=== PATIENT | female | born 1995 | race Caucasian/White ===

== ENCOUNTER 2017-03-28 18:04 | Emergency (ER) | payer OTHER ==
[2017-03-28 18:14] VITALS: RESP 20; TEMP 98.1; O2SAT 99
--- NOTE | 2017-03-28 18:27 | EDPHY ---
H & P Stated Complaint: swallowed metal piece of retainer yesterday/abd pain today HPI/ROS: HPI CHIEF COMPLAINT: Swallowed a metal bar from an upper retainer. HISTORY OF PRESENT ILLNESS: This patient very pleasant 21-year-old female, she presents emergency room for upper abdominal pain intermittently rather severe after she swallowed a metal bar retainer. This was a metal bar that was glued to the upper teeth inside. She felt come off while eating cereal yesterday morning. She did swallowed she notified her parents and her nutrition manager. She now presents emergency room if she is having some intermittent rather severe sharp stabbing epigastric abdominal pain. Denies vomiting. Denies blood in her stool. Denies any significant medical history Past Medical History: Denies significant medical history Past Surgical History: Denies significant surgical history Social History: Denies daily use of drugs alcohol tobacco products Family History: Noncontributory ROS REVIEW OF SYSTEMS: A comprehensive 10 point review of systems is otherwise negative aside from elements mentioned in the history of present illness. Exam Constitutional appears well nontoxic, triage nursing summary reviewed, vital signs reviewed, awake/alert. Eyes normal conjunctivae and sclera, EOMI, PERRLA. HENT normal inspection, atraumatic, moist mucus membranes, no epistaxis, neck supple/ no meningismus, no raccoon eyes. Respiratory clear to auscultation bilaterally, normal breath sounds, no respiratory distress, no wheezing. Cardiovascular rate normal, regular rhythm, no murmur, no edema, distal pulses normal. Gastrointestinal no specific tenderness on exam. soft, non-tender, no rebound , no guarding, normal bowel sounds, no distension, no pulsatile mass. Genitourinary no CVA tenderness. Musculoskeletal no midline vertebral tenderness, full range of motion, no calf swelling, no tenderness of extremities, no meningismus, good pulses, neurovascularly intact. Skin pink, warm, & dry, no rash, skin atraumatic. Neurologic awake, alert and oriented x 3, AAOx3, moves all 4 extremities equally, motor intact, sensory intact, CN II-XII intact, normal cerebellar, normal vision, normal speech. Psychiatric normal mood/affect. Heme/Lymph/Immune no lymphadenopathy. Differential Diagnosis: Includes but is not limited to in a particular order, ingested foreign body, bowel perforation, free air, intra-abdominal peritonitis Medical Decision Making: Plan for this patient KUB upright, basic blood work, and most likely consult Gastroenterology. Re-evaluation: 2006: I did review this patient's KUB. No free air. No foreign body metallic seen on x-ray. She does tell me that she swallowed this retainer piece of metal she thinks 6:15 a.m. yesterday or approximately over 36 hours ago. It is possible she already pass this. 2022: I spoke with Gastroenterology Dr. Morgan. I explained the clinical scenario. He does recomend amend a two view chest x-ray to make sure does not esophagus or lung. I explained I do not see this metal foreign body on the abdominal x-ray. There is no free air. It is possible sure the past 2 or did not swallow it. LFTs and lipase are pending at this time. If the x-ray looks okay is no other cause of abdominal pain and we do not appreciate a foreign body patient go home however strict return precautions she understands return emergency room she develops worsening abdominal pain, fever, vomiting. 2052: Patient's x-rays reviewed KUB and chest x-ray two view. No foreign body seen. Blood work reviewed reassuring. I will allow the patient to go home. We do not see any evidence of metal foreign body. Understands return emergency room if develops worsening abdominal pain, fever, vomiting. Strict return precautions given she understands. Source: Patient - Personal History LMP (Females 10-55): 1-7 Days Ago Current Tetanus/Diphtheria Vaccine: Unsure - Medical/Surgical History Hx Asthma: No Hx Chronic Respiratory Disease: No Hx Diabetes: No Hx Cardiac Disease: No Hx Renal Disease: No Hx Cirrhosis: No Hx Alcoholism: No Hx HIV/AIDS: No Hx Splenectomy or Spleen Trauma: No Other PMH: denies - Social History Smoking Status: Never smoked Constitutional: Initial Vital Signs Temperature (C) 36.7 C 03/28/17 18:11 Heart Rate 112 H 03/28/17 18:11 Respiratory Rate 20 03/28/17 18:11 Blood Pressure 143/91 H 03/28/17 18:11 O2 Sat (%) 99 03/28/17 18:11 O2 Delivery Mode Room Air Allergies/Adverse Reactions: No Known Allergies Allergy (Unverified 03/28/17 18:10) Home Medications: Medication Instructions Recorded Xulane Patch 03/28/17 Medical Decision Making - Diagnostics Imaging Results: Imaging Impressions Abdomen X-Ray 03/28/17 18:27 Impression: Negative. Chest X-Ray 03/28/17 20:06 Impression: The retainer is not identified. - Data Points Laboratory Results: Laboratory Results 03/28/17 18:55 03/28/17 18:55 03/28/17 03/28/17 03/28/17 18:55 18:55 18:55 WBC 12.94 10^3/uL H 10^3/uL (3.80-9.50) RBC 4.62 10^6/uL 10^6/uL (4.18-5.33) Hgb 13.8 g/dL g/dL (12.6-16.3) Hct 41.0 % % (38.0-47.0) MCV 88.7 fL fL (81.5-99.8) MCH 29.9 pg pg (27.9-34.1) MCHC 33.7 g/dL g/dL (32.4-36.7) RDW 12.6 % % (11.5-15.2) Plt Count 287 10^3/uL 10^3/uL (150-400) MPV 10.0 fL fL (8.7-11.7) Neut % (Auto) 74.4 % H % (39.3-74.2) Lymph % (Auto) 16.2 % % (15.0-45.0) Dixie % (Auto) 4.6 % % (4.5-13.0) Eos % (Auto) 4.1 % % (0.6-7.6) Baso % (Auto) 0.5 % % (0.3-1.7) Nucleat RBC Rel Count 0.0 % % (0.0-0.2) Absolute Neuts (auto) 9.63 10^3/uL H 10^3/uL (1.70-6.50) Absolute Lymphs (auto) 2.09 10^3/uL 10^3/uL (1.00-3.00) Absolute Monos (auto) 0.60 10^3/uL 10^3/uL (0.30-0.80) Absolute Eos (auto) 0.53 10^3/uL H 10^3/uL (0.03-0.40) Absolute Basos (auto) 0.06 10^3/uL 10^3/uL (0.02-0.10) Absolute Nucleated RBC 0.00 10^3/uL 10^3/uL (0-0.01) Immature Gran % 0.2 % % (0.0-1.1) Immature Gran # 0.03 10^3/uL 10^3/uL (0.00-0.10) Sodium 138 mEq/L mEq/L (134-144) Potassium 3.6 mEq/L mEq/L (3.5-5.2) Chloride 103 mEq/L mEq/L (97-110) Carbon Dioxide 24 mEq/l mEq/l (22-31) Anion Gap 11 mEq/L mEq/L (8-16) BUN 11 mg/dL mg/dL (7-23) Creatinine 0.8 mg/dL mg/dL (0.6-1.0) Estimated GFR > 60 Glucose 106 mg/dL H mg/dL (70-100) Calcium 9.8 mg/dL mg/dL (8.5-10.4) Total Bilirubin 0.7 mg/dL mg/dL (0.1-1.4) Conjugated Bilirubin 0.3 mg/dL mg/dL (0.0-0.5) Unconjugated Bilirubin 0.4 mg/dL mg/dL (0.0-1.1) AST 23 IU/L IU/L (14-46) ALT 31 IU/L IU/L (9-52) Alkaline Phosphatase 44 IU/L IU/L (38-126) Total Protein 7.4 g/dL g/dL (6.3-8.2) Albumin 4.5 g/dL g/dL (3.5-5.0) Lipase 90.0 IU/L IU/L (23-300) Departure - Departure Disposition: Home, Routine, Self-Care Clinical Impression: Abdominal pain Qualifiers: Abdominal location: generalized Qualified Code(s): R10.84 - Generalized abdominal pain Condition: Good Instructions: Acute Abdominal Pain (ED) Additional Instructions: 1. Return emergency room if he develops worsening abdominal pain fever vomiting blood in your stool. Referrals: UNKNOWN,DOCTOR [Other] - As per Instructions Reji Morgan MD [Medical Doctor] - As per Instructions
[2017-03-28 19:14] LABS: % IMMATURE GRANULYOCYTES 0.2 % (0.0-1.1); ABSOLUTE IMMATURE GRANULOCYTES 0.03 10^3/uL (0.00-0.10); ADD DIFF? NO; ADD MORPH? NO; ADD SCAN? NO; ATYPICAL LYMPHOCYTE FLAG 0 (0-99); FRAGMENT RBC FLAG 0 (0-99); HEMOGLOBIN 13.8 g/dL (12.6-16.3); LEFT SHIFT FLG 0 (0-99); LIPEMIA HEMOLYSIS FLAG 80 (0-99); MEAN CELL HEMOGLOBIN 29.9 pg (27.9-34.1); MEAN CELL HEMOGLOBIN CONCENTR. 33.7 g/dL (32.4-36.7); MEAN CELL VOLUME 88.7 fL (81.5-99.8); PLATELET CLUMPS FLAG 10 (0-99); PLATELET COUNT 287 10^3/uL (150-400); RED BLOOD CELL COUNT 4.62 10^6/uL (4.18-5.33); RED CELL DISTRIBUTION WIDTH 12.6 % (11.5-15.2)
[2017-03-28 19:20] LABS: ANION GAP 11 mEq/L (8-16); CALCIUM 9.8 mg/dL (8.5-10.4); CARBON DIOXIDE 24 mEq/l (22-31); CHLORIDE 103 mEq/L (97-110); CREATININE 0.8 mg/dL (0.6-1.0); GLOMERULAR FILTRATION RATE > 60; GLUCOSE 106 mg/dL (70-100); POTASSIUM 3.6 mEq/L (3.5-5.2); SODIUM 138 mEq/L (134-144)
[2017-03-28 20:26] LABS: ALBUMIN 4.5 g/dL (3.5-5.0); BILIRUBIN,TOTAL 0.7 mg/dL (0.1-1.4); BILIRUBIN-CONJUGATED 0.3 mg/dL (0.0-0.5); BILIRUBIN-UNCONJUGATED 0.4 mg/dL (0.0-1.1); TOTAL PROTEIN 7.4 g/dL (6.3-8.2)
[2017-03-28 21:37] VITALS: BP 125/87; PULSE 96
== END 2017-03-28 21:37 | disposition home or self-care (01) ==
DX: R10.84 Generalized abdominal pain (principal)